=== PATIENT | male | born 1965 | race Caucasian/White ===

== ENCOUNTER 2018-10-21 11:50 | Observation (INO) ==
[2018-10-21] MEDS ORDERED: NS 1,000 ML IV ONE (12:15)
[2018-10-21 12:49] LABS: BASO# 0.06 X1000 (0.0-0.2); BASO% 0.5 % (0.0-0.8); EOS# 0.19 X1000 (0.0-0.7); EOS% 1.6 % (0.0-10.0); HEMATOCRIT 42.8 % (42.0-52.0); HEMOGLOBIN 14.6 g/dL (14.0-18.0); IMM GRAN# 0.04 X1000 (0.0-0.04); IMM GRAN% 0.3 % (0.0-0.5); LYMPH# 2.31 X1000 (1.2-3.4); LYMPH% 19.4 % (20.5-51.1); MCH 32.7 PG (27-31); MCHC 34.1 g/dL (33-37); MONO# 1.09 X1000 (0.11-0.59); MONO% 9.2 % (1.7-9.3); MPV 9.5 FL (7.4-10.4); NEUT# 8.19 X1000 (1.4-6.5); PLT 251 X1000 (130-400); RBC 4.46 XMIL (4.7-6.1); RDW 13.3 % (11.5-14.5); WBC 11.88 X1000 (4.8-10.8)
[2018-10-21 12:54] LABS: INR 0.94; PROTIME 13.3 Seconds (11.0-16.0)
[2018-10-21 12:55] LABS: PTT 27.1 Seconds (22.3-41.8)
[2018-10-21 13:03] LABS: AGAP 9; ALB/GLOB RATIO 1.9; ALBUMIN 3.9 g/dL (3.5-5.0); ALKALINE PHOSPHATASE 77 U/L (32-122); BUN 14 mg/dL (8-22); CALCIUM 7.9 mg/dL (8.8-10.2); CHLORIDE 104 mmol/L (98-107); COSMO 280; CREATININE 0.8 mg/dL (0.7-1.2); ESTIMATED GFR > 60; GLUCOSE 100 mg/dL (70-104); GOT 31 U/L (10-34); GPT 40 U/L (10-44); MAGNESIUM 2.4 mg/dL (1.5-2.7); POTASSIUM 4.2 mmol/L (3.5-5.1); SODIUM 140 mmol/L (136-145); TCO2 27 mmol/L (25-35); TOTAL BILIRUBIN 0.25 mg/dL (0.20-1.00)
--- NOTE | 2018-10-21 15:21 | PROVIDER DOCUMENTATION ---
This chart was entered by Jasmine Phillips Scribe, acting as scribe for Faustino Quiñones MD. HPI-Abdominal Pain/GI Problem - General Chief Complaint: GI Bleed Stated Complaint: VOMITING BLOOD PASSING BLOOD SINCE WEDNESDAY Time Seen by Provider: 10/21/18 12:03 Source: patient, old records Allergies/Adverse Reactions: Patient Allergies Allergy/AdvReac Type Severity Reaction Status Date / Time No Known Allergies Allergy Verified 10/21/18 12:32 Home Medications: Home Medication List Medication Instructions Recorded Confirmed Last Taken Type Naproxen Sodium [Aleve] 220 mg PO Q12H PRN 10/21/18 10/21/18 10/21/18 History Ondansetron Odt [Zofran 4 mg Odt] 4 mg PO Q6H PRN PRN 10/21/18 10/21/18 2 Days Ago History ~10/19/18 Pantoprazole [Protonix] 40 mg PO DAILY@0700 10/21/18 10/21/18 10/21/18 History - History of Present Illness-ABD Nature of Presenting Problems: 53 y/o male presents to ED with hematemesis onset 4 days ago. Pt reports he has vomited black blood and had black diarrhea. Pt states he was seen at [place] [facility] on Wednesday for same and sent home with zofran and protonix. Pt reports he has not been eating because it exacerbates his symptoms. Pt states he has a colonoscopy every 3-4 years for pre-cancerous polyps. Pt reports he drinks 5-6 beers daily and occasionally takes Aleve for neck pain. Pt is alert and oriented. Abdominal Pain Onset Location: denies: generalized abdomen Pain Radiation: reports: no radiation Quality of Pain: reports: none Severity in ED: reports: moderate Onset/Duration: reports: 4 days ago Timing: reports: still present Activities at Onset: reports: none Exposure to sick contacts?: No Modifying Factors: worse with: eating Associated Symptoms: reports: diarrhea, vomiting, other (hematemesis) Last BM: this morning Dark Stools Present?: reports: black Rectal Bleeding: reports: bloody diarrhea Rectal Pain: reports: none Similar Symptoms Previously?: No Recently seen or treated by another doctor?: Yes ([place] [facility] on Wednesday for same) Review of Systems - Adult - REVIEW OF SYSTEMS - ADULT Constitutional: denies: chills, fever Eyes: reports: no symptoms reported Ears, Nose, Mouth & Throat: reports: no symptoms reported Cardiovascular: denies: chest pain, palpitations Respiratory: denies: cough, shortness of breath Gastrointestinal: reports: hematemesis, diarrhea, vomiting. denies: abdominal pain, nausea Genitourinary: reports: no symptoms reported Musculoskeletal: denies: back pain, joint pain Integumentary: reports: no symptoms reported Neurological: denies: dizziness/vertigo, seizure Psychiatric: reports: no symptoms reported Endocrine: reports: no symptoms reported Hematologic/Lymphatic: reports: no symptoms reported Allergic/Immunologic: reports: no symptoms reported All Other Systems: Reviewed and Negative Past History - Adult - PAST MEDICAL HISTORY-ADULT Review of Records: reports: Old Records Reviewed, Nursing Assessment Review, Medications Reviewed Major Childhood Illnesses: reports: denies history Gastrointestinal: reports: polyps - PRIOR SURGERIES/PROCEDURES Surgical/Procedure History: reports: colonoscopy - IMMUNIZATION STATUS Childhood Immunizations: See Nurse Assessment Flu Vaccine: See Nurse Assessment - FAMILY HISTORY Family History: reviewed, not pertinent - SOCIAL HISTORY Smoking: greater than 1 pack/day Provider spent 3-5 mins advising pt. on dangers of tobacco.: Discussed manners to quit use, and f/u contacts for add'l counseling. Substance Use: none/never Alcohol Use Frequency: every day Number of drinks per typical drinking period:: 5-10 drinks Living Situation: family Physical Exam-General - PHYSICAL EXAM-ADULT Initial Vital Signs Reviewed: Yes - CONSTITUTIONAL General Appearance: appears well, alert, no apparent distress - EYES Eyes: PERRL/EOMI, pink conjunctivae - HEAD, EARS, NOSE, MOUTH & THROAT HENMT: normocephalic/atraumatic, moist mucous membranes, normal ENT inspection - NECK Neck: non-tender, full range of motion - RESPIRATORY Respiratory: chest non-tender, lungs clear, normal breath sounds - CARDIOVASCULAR Cardiovascular: normal peripheral pulses, regular rate, rhythm - GASTROINTESTINAL (ABDOMEN) Abdominal Exam: normal bowel sounds, non tender, soft - MUSCULOSKELETAL Back Exam: normal inspection, no CVA tenderness Extremity: normal range of motion, non-tender, normal gait - SKIN Integumentary: normal color, warm/dry - NEUROLOGIC Neurologic: grossly normal - PSYCHIATRIC Psych/Mental Status: normal mood/affect, normal thought content, normal thought process Progress - PLAN OF CARE/RESULTS Progress/Plan/Lab Results: Vital Signs - 8 hr 10/21/18 11:55 Temperature 97.7 F Pulse Rate 92 H Respiratory Rate 16 Blood Pressure 107/70 O2 Sat by Pulse Oximetry 97 Orders Category Date Time Status ALCOHOL BLOOD Stat Lab 10/21/18 12:15 Uncollected CBC WITH DIFF [HEME] Stat Lab 10/21/18 12:15 Uncollected COMPREHENSIVE METABOLIC PANEL [CHEM] Stat Lab 10/21/18 12:15 Uncollected MAGNESIUM [CHEM] Stat Lab 10/21/18 12:15 Uncollected PROTIME WITH INR [COAG] Stat Lab 10/21/18 12:15 Uncollected PTT [COAG] Stat Lab 10/21/18 12:15 Uncollected 0.9% Sodium Chloride Inj [Ns] 1,000 ml Med 10/21/18 12:15 Active IV 200 mls/hr Laboratory Tests 10/21/18 10/21/18 10/21/18 12:25 12:25 12:25 WBC 11.88 H RBC 4.46 L Hgb 14.6 Hct 42.8 MCV 96.0 MCH 32.7 H MCHC 34.1 RDW Std Deviation 13.3 Plt Count 251 MPV 9.5 Immature Gran % (Auto) 0.3 Neut % (Auto) 69.0 Lymph % (Auto) 19.4 L [place] % (Auto) 9.2 Eos % (Auto) 1.6 Baso % (Auto) 0.5 Immature Gran # (Auto) 0.04 Neut # (Auto) 8.19 H Lymph # (Auto) 2.31 [place] # (Auto) 1.09 H Eos # (Auto) 0.19 Baso # (Auto) 0.06 PT INR PTT (Actin FS) Sodium 140 Potassium 4.2 Chloride 104 Carbon Dioxide 27 Anion Gap 9 BUN 14 Creatinine 0.8 Estimated GFR/1.73 m2 > 60 BUN/Creatinine Ratio 18 Glucose 100 Calculated Osmolality 280 Calcium 7.9 L Magnesium 2.4 Total Bilirubin 0.25 AST 31 ALT 40 Alkaline Phosphatase 77 Total Protein 6.0 L Albumin 3.9 Globulin 2.1 Albumin/Globulin Ratio 1.9 Plasma/Serum Ethyl Alc 10/21/18 12:25 WBC RBC Hgb Hct MCV MCH MCHC RDW Std Deviation Plt Count MPV Immature Gran % (Auto) Neut % (Auto) Lymph % (Auto) [place] % (Auto) Eos % (Auto) Baso % (Auto) Immature Gran # (Auto) Neut # (Auto) Lymph # (Auto) [place] # (Auto) Eos # (Auto) Baso # (Auto) PT 13.3 INR 0.94 PTT (Actin FS) 27.1 Sodium Potassium Chloride Carbon Dioxide Anion Gap BUN Creatinine Estimated GFR/1.73 m2 BUN/Creatinine Ratio Glucose Calculated Osmolality Calcium Magnesium Total Bilirubin AST ALT Alkaline Phosphatase Total Protein Albumin Globulin Albumin/Globulin Ratio Plasma/Serum Ethyl Alc Result Diagrams: 10/21/18 12:25 10/21/18 12:25 - CONSULTS/PCP/HOSPITALIST Notification #1 *Consult/PCP/Hospitalist*: ROSENDA Orellana for Dr. Quinn Time Discussed: 14:14 Reason/Comments: GI bleed Consult Disposition: Admit Departure - Departure Date of Disposition Decision: 10/21/18 Time of Disposition Decision: 14:15 DIAGNOSIS: Upper GI bleed Disposition: ADMITTED INPATIENT 09 Certified Medical Emergency: Emergent Condition: Stable Referrals and Follow-Ups: Triston Gonsalez [Primary Care Provider] - Discharge Education: Steps to Quit Smoking, [id number] - Critical Care Note This patient required my direct & personal management of CC.: No Attestation - Physician/ MAYKEL Attestation Patient care was provided by Advanced Practice Provider:: No The physician spent face to face time with patient:: Yes Advanced Practice Provider documentation review:: Supervising physician onsite and consulted in the evaluation and care of this patient. The physician did have a face to face encounter with the patient. This chart was documented by the indicated scribe, (Jasmine Phillips Scribe) and accurately reflects the services I performed and decisions made by me, Faustino Quiñones MD, as attested by the provider's signature.
[2018-10-21] MEDS ORDERED: ZOFRAN IV PRN (16:04)
[2018-10-21] MEDS ORDERED: ATIVAN IV PRN (16:05)
[2018-10-21] MEDS ORDERED: SODIUM CHLORIDE 0.9% INJ SCH (16:15)
--- NOTE | 2018-10-21 17:05 | Diag Imaging Result Doc PS360 ---
EXAM: CT ABDOMEN/PELVIS W/O CONTRAST 10/21/2018 HISTORY: abdominal pain/GI bleed TECHNIQUE: This exam was performed using automated exposure control, adjustment of mA or kV according to patient size, and/or use of iterative reconstruction technique. COMMENT: There are no previous studies available for comparison. There is atelectasis in both posterior costophrenic sulci. There is a hiatal hernia. There is a tiny amount of pleural fluid bilaterally. There is no evidence of cholelithiasis. 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 No evidence of nephrolithiasis or hydronephrosis is present. The appendix is normal in appearance. The stomach and small bowel are not distended. There is some gas fluid and fecal debris in the colon without evidence of dilatation. The urinary bladder is not distended. There is no evidence of free fluid. The regional skeleton is intact. IMPRESSION: Bibasilar atelectasis and minimal pleural effusions. Electronically signed by Chepe Benoit 10/21/2018 5:03 PM
[2018-10-21 17:12] LABS: HEMOGLOBIN A1C 5.6 % (4.8-6.0)
[2018-10-21] MEDS: PROTONIX IV SCH (17:16)
[2018-10-21] MEDS: NICODERM PATCH TD SCH (17:16)
[2018-10-21] MEDS: NS 1,000 ML IV SCH (17:17)
[2018-10-21] MEDS: MORPHINE IV PRN (21:31)
[2018-10-22] MEDS: NS 1,000 ML IV SCH ×2 (01:49→10:24)
[2018-10-22] MEDS: MORPHINE IV PRN (02:00)
[2018-10-22 02:20] LABS: URINE SOURCE CLEAN CATCH
[2018-10-22 02:31] LABS: BILIRUBIN URINE NEGATIVE (NEGATIVE); BLOOD URINE NEGATIVE (NEGATIVE); COLOR YELLOW; GLUCOSE URINE NEGATIVE (NEGATIVE); KETONE URINE NEGATIVE (NEGATIVE); LEUKOCYTES URINE NEGATIVE (NEGATIVE); NITRITE URINE NEGATIVE (NEGATIVE); PROTEIN URINE NEGATIVE (NEGATIVE); SP GRAVITY URINE 1.016; TURBIDITY URINE CLEAR (CLEAR); UR EPITHELIAL CELLS <10 /HPF (<10); URINE BACTERIA NEGATIVE /HPF; URINE RBC <10 /HPF (<10); URINE WBC <10 /HPF (<10); UROBILINOGEN URINE NORMAL (NORMAL)
--- NOTE | 2018-10-22 03:15 | HISTORY AND PHYSICAL ---
PRIMARY CARE PHYSICIAN: Dr. Triston Gonsalez. CHIEF COMPLAINT: "I started vomiting coffee-grounds and my stool was black." HISTORY OF PRESENT ILLNESS: Mr. Guzman is a 53-year-old white male with a history of alcohol abuse and tobacco dependence, who presented to the ER today with a chief complaint of melena as well as coffee-grounds emesis that started on Wednesday. The patient reports that on Wednesday night he started vomiting up coffee-grounds and noticed that his stools were black. He then presented to [facility] on Wednesday and was seen by the ER physician. His emesis was noted to be positive for blood. He was sent home with Protonix and Zofran, and told to follow up with his primary care physician for a GI referral. The patient states that he went home and continued to have persistent nausea, vomiting, and, abdominal pain and he started to have continuous belching. The patient states that ever since Wednesday his stools have been black, and now they are liquid in consistency. He also complains of lower abdominal pain that comes and goes. The patient reports that his last colonoscopy was about 3 years and it was done by Dr. Castanon. The patient also uses naproxen for pain and drinks 4 to 6 beers a day, and smokes a pack of cigarettes daily. In the ER, the patient was noted to have a hemoglobin of 14 with a hematocrit of 42. PAST MEDICAL HISTORY: 1. Tobacco dependence. 2. Alcohol abuse. PAST SURGICAL HISTORY: Hemorrhoidectomy. SOCIAL HISTORY: The patient is and lives at home with his . He smokes 1 pack of cigarettes a day and has been doing this for 40 years. The patient drinks 4 to 6 beers a day. He denies any illicit drug use. FAMILY HISTORY: None. ALLERGIES: No known drug allergies. HOME MEDICATIONS: 1. Naproxen 220 mg oral every 12 hours p.r.n. for pain. 2. Zofran 4 mg oral every 6 hours p.r.n. for nausea. 3. Protonix 40 mg p.o. daily. REVIEW OF SYSTEMS: A 12-point review of systems has been performed, please refer to the history of present illness for pertinent positives and negatives. PHYSICAL EXAMINATION: VITAL SIGNS: Temperature 98 degrees, blood pressure 131/73, heart rate 79, respirations 18, O2 saturation 99% on room air. GENERAL: This is a chronically ill-appearing, elderly male lying in bed, in no acute distress. SKIN: No rashes, no lesions. Normal capillary refill. HEAD: Normocephalic, atraumatic. EYES: Conjunctivae clear, EOMI, PERRLA. NECK: Supple. No JVD. No lymphadenopathy. HEART: S1, S2 normal. Regular rate and rhythm. LUNGS: Clear to auscultation bilaterally. No wheezing. No rales. No rhonchi. ABDOMEN: Positive bowel sounds. Soft, mild tenderness in the lower abdominal quadrant. EXTREMITIES: No edema. No cyanosis. No calf tenderness. NEUROLOGIC: The patient is alert and oriented x4. No focal neurologic deficits noted. Cranial nerves 2 through 12 intact. LABS: White blood cell count 11.8, hemoglobin 14.6, hematocrit 42.8. Glucose 251. INR 0.9. Sodium 140, potassium 4.2, chloride 104, CO2 of 27, BUN 14, creatinine 0.8. Glucose 100. A1c 5.6. Calcium 7.9, magnesium 2.4, AST 31, ALT 40, alkaline phosphatase 77, albumin 3.9. ASSESSMENT AND PLAN: 1. Gastrointestinal bleed. The patient states that the last time he had coffee- grounds emesis was on Wednesday. He is still having melena. His hemoglobin and hematocrit is stable at this time. We will start Protonix IV q.12 hours. We will also make the patient NPO and consult Gastroenterology for further recommendations. The patient does report that he uses naproxen. 2. Alcohol abuse. The patient states that his last drink was on Wednesday. We will start the patient on p.r.n. Ativan and monitor for signs of withdrawal. 3. Tobacco dependence. We will start the patient on a NicoDerm patch. 4. Deep vein thrombosis prophylaxis. We will start the patient on SCDs. cc: Ana Quinn MD [facility]
[2018-10-22] MEDS: PROTONIX IV SCH (04:36)
[2018-10-22 07:55] LABS: HEMATOCRIT 42.4 % (42.0-52.0); MCH 32.6 PG (27-31); MCV 98.6 FL (81-99); MPV 9.5 FL (7.4-10.4); RBC 4.3 XMIL (4.7-6.1); RDW 12.9 % (11.5-14.5); WBC 10.3 X1000 (4.8-10.8)
[2018-10-22] MEDS: NICODERM PATCH TD SCH (08:02)
[2018-10-22 08:13] LABS: AGAP 10; ALB/GLOB RATIO 1.4; ALBUMIN 3.6 g/dL (3.5-5.0); ALKALINE PHOSPHATASE 77 U/L (32-122); BUN 10 mg/dL (8-22); CALCIUM 7.6 mg/dL (8.8-10.2); CHLORIDE 105 mmol/L (98-107); COSMO 276; CREATININE 0.7 mg/dL (0.7-1.2); ESTIMATED GFR > 60; GLUCOSE 82 mg/dL (70-104); GOT 32 U/L (10-34); GPT 45 U/L (10-44); POTASSIUM 4.3 mmol/L (3.5-5.1); SODIUM 139 mmol/L (136-145); TCO2 24 mmol/L (25-35); TOTAL BILIRUBIN 0.47 mg/dL (0.20-1.00); TOTAL PROTEIN 6.1 g/dL (6.3-8.3)
[2018-10-22 12:33] VITALS: BP 116/65
[2018-10-22 14:07] LABS: HEMATOCRIT 43.6 % (42.0-52.0); HEMOGLOBIN 14.8 g/dL (14.0-18.0)
--- NOTE | 2018-10-23 06:22 | GASTROENTEROLOGY CONSULTATION ---
DATE: 10/22/2018 REASON FOR CONSULTATION: Coffee ground emesis and melena. HISTORY OF PRESENT ILLNESS: Mr. Dario Guzman is a 53-year-old gentleman with past medical history of colonic polyps and alcoholism, who presents with 5 days of coffee- ground emesis and liquid melenic stools. He reports that his symptoms started about 5 days ago, in the evening. It initially started with nonbloody diarrhea, multiple episodes with coffee-ground emesis. On Wednesday, he started noticing his stools becoming black in coloration and continued to be thin. He continued to have nausea, vomiting. He presented to the [facility] ER, where he was discharged on pantoprazole once a day. His systems symptoms persisted and he was admitted overnight for further GI evaluation. He denies any other associated symptoms, including presyncope, chest pain, shortness of breath, weight loss, bright red blood per rectum, gross hematemesis. He denies any triggers from food or sick contacts. He does report some cramping abdominal discomfort, that is improved. Of note, the patient reports taking 2 to 3 Advil per day for 4 to 5 days leading up to onset of symptoms for neck pain. He denies any history of prior GI bleeding. No prior EGD. His last colonoscopy was 3 to [address] Castanon. No blood thinners. No abdominal surgeries. No family history of GI malignancies, except for none in his first- degree relatives. He did have a maternal grandfather who had colon cancer, he at 95 years of age. PAST MEDICAL HISTORY: Colonic polyps, alcoholism. PAST SURGICAL HISTORY: None. No abdominal surgeries in the past. MEDICATIONS: [id number] Advil, pantoprazole recently prescribed from the ED. ALLERGIES: No known drug allergies. SOCIAL HISTORY: He drinks a drinks about a case of beer per week. He is a 1 pack per day smoker. No drug use. REVIEW OF SYSTEMS: As per HPI, otherwise 12-point review of systems negative. PHYSICAL EXAMINATION: Vital Signs: Temperature is 97.9 degrees, pulse is 78, respiratory rate is 14, blood pressure 118/67, O2 saturations 99% on room air. The patient did have some in a mild tachycardia of 99 on admission that improved quickly with resuscitation. General: The patient is awake, alert, oriented, in no acute distress. HEENT: Sclerae anicteric. Moist mucous membranes. Extraocular motor intact. Neck: Supple. No JVD. No lymphadenopathy. Cardiac: Regular rate and rhythm. No murmurs, rubs, or gallops. Lungs: Clear to auscultation bilaterally. No wheezing. Abdomen: Soft, nontender, nondistended. Normoactive bowel sounds. Extremities: No clubbing, cyanosis, or edema. Neuro: Nonfocal. No stigmata of chronic liver disease. LABS: White count 11.8, hemoglobin 14.0 from 14.6 on admission, platelets of 241,000. Sodium 139, potassium 4.3, chloride 105, bicarb 24, BUN is 10, creatinine 0.7. Glucose 82, calcium 7.6, total bilirubin 0.47, AST of 32, ALT of 45, alkaline phosphatase 77, total protein 6.1, albumin 3.6. INR 0.94. UA is negative. Alcohol level is undetectable. CT abdomen and pelvis showed bibasilar atelectasis and minimal pleural effusions. No acute intra- abdominal process noted. He does have a hiatal hernia seen on CT. ASSESSMENT AND PLAN: Mr. Dario Guzman is a 53-year-old gentleman with history of colonic polyps and alcoholism, who presents with acute onset upper GI bleed with coffee-ground emesis and melena. His hemoglobin is normal with a slight drop after fluid resuscitation. There is no stigmata of cirrhosis. He does have a positive history of recent NSAID use leading up to onset of symptoms. Differential includes erosive gastritis, esophagitis, duodenitis, peptic ulcer disease, unlikely variceal bleeding or lower GI bleeding. The patient is on IV proton pump inhibitor twice daily, antiemetics as needed, and IV fluids. 1. Upper gastrointestinal bleed. Differential as above. I discussed with patient possible close follow-up in the GI Clinic with outpatient EGD early next week, given his hemodynamic stability and stable hematocrit. We will arrange. The patient was advised to avoid all NSAIDs and aspirin. Tylenol as needed for pain. He will need to be on Protonix p.o. b.i.d. with an ER warning given if he develops recurrent. 2. Alcoholism. He is currently on Ativan, as needed. He does have a mildly elevated ALT, likely from fatty liver related to alcohol. No signs of cirrhosis on CT. Minimizing alcohol was encouraged. 3. Tobacco abuse. Smoking cessation recommended. 4. I have started the patient on a regular diet for now. If the patient is doing well with this and not having any recurrent bleeding, the patient is okay for discharge from a GI standpoint. I would recheck a hemoglobin later this afternoon, around 1 or 2 p.m., prior to discharge. If that is stable, he can be discharged. Thank you for this consult. Please call with any questions. DAYAMI
--- NOTE | 2018-10-24 10:39 | DISCHARGE SUMMARY ---
ADMISSION DATE: 10/21/2018 DISCHARGE DATE: 10/22/2018 FINAL DISCHARGE DIAGNOSES: 1. Upper gastrointestinal bleed. 2. Tobacco dependence. 3. Alcohol dependence. CONSULTATIONS: GI consultation with Dr. Boggs. IMAGING: CT of the abdomen and pelvis, which revealed bibasilar atelectasis and minimal pleural effusions. HOSPITAL COURSE: Mr. Guzman is a 53-year-old male with a history of tobacco and alcohol abuse, who presented to the ER with a chief complaint of abdominal pain and coffee-grounds emesis, plus melena. The patient was admitted to the Hospitalist Service and started on IV Protonix every 12 hours. The patient's hemoglobin on admission was noted to be 14, and remained at that level over the next 24 to 48 hours. The patient was assessed by the extruder operator vertical, and since the patient had no further episodes of coffee-ground emesis or melena, it was decided that the patient could be discharged home with instructions to [facility]2018 to undergo an EGD. The patient was also advised to continue on Protonix 40 mg oral twice a day. The patient was advised to remain n.p.o. at midnight on 10/24/2018. DISCHARGE MEDICATIONS: 1. Protonix 40 mg p.o. daily. 2. Zofran 4 mg oral every 6 hours p.r.n. for nausea. DISCHARGE DIET: Full liquids. ACTIVITY: As tolerated. DISCHARGE INSTRUCTIONS: The patient has been instructed to report to the [facility] on 10/24/2018 at 8 a.m. to undergo an EGD by Dr. Castanon. cc: Ana Quinn MD
== END 2018-10-22 15:08 | disposition home or self-care (01) ==
LOC: ED 11:50 → INTOOBSV 11:51 → 3N 18:21
PROVIDERS: ATTEND Internal Medicine
CPT/HCPCS: 74176; 80053; 80307; 80320; 81001; 82055; 83036; 83735; 85014; 85018; 85025; 85027; 85610; 85730; 96361; 96374; 96375; 99285; A9270; C9113; G0480; G6040; J2060; J2270; J7030; S0164